=== PATIENT | female | born 1940 | race Caucasian/White ===

== ENCOUNTER 2018-01-01 10:39 | Emergency (ER) | payer MEDICARE, BC ==
[2018-01-01 11:14] VITALS: BP 152/64
--- NOTE | 2018-01-01 11:24 | UC ---
UC General HPI - HPI Summary HPI Summary: pt is c/o a "uti" had one before and this feels the same. she is c/o frequency, burning and hesitancy. denies abdominal pain, flank pain and fever. - History of Current Complaint Chief Complaint: UCGU Stated Complaint: URINARY COMPLAINT/BACK PAIN Time Seen by Provider: 01/01/18 11:17 Hx Obtained From: Patient Onset/Duration: Gradual Onset, Lasting Weeks - 2 Pain Intensity: 4 Aggravating: nothing Alleviating: nothing Associated Signs & Symptoms: Positive: Dysuria. Negative: Abdominal Pain, Fever - Allergy/Home Medications Allergies/Adverse Reactions: Allergies Allergy/AdvReac Type Severity Reaction Status Date / Time furosemide [From Lasix] Allergy Unknown Verified 01/01/18 11:06 Reaction Details Penicillins Allergy Rash Verified 01/01/18 11:06 Sulfa (Sulfonamide Allergy Hives Verified 01/01/18 11:06 Antibiotics) Home Medications: Home Medications Alendronate (NF) [Fosamax (NF)] 70 mg PO WE 01/01/18 [History Confirmed 01/01/18 ] Apixaban* [Eliquis*] 5 mg PO BID 01/01/18 [History Confirmed 01/01/18] Azelastine 0.15% NASAL(NF) [Astepro 0.15% NASAL (NF)] 2 spray NASAL BID [History Confirmed 01/01/18] Evolocumab [Repatha Sureclick] 140 mg SC Q14D 01/01/18 [History Confirmed ] Ezetimibe TAB* [Zetia TAB*] 10 mg PO DAILY 01/01/18 [History Confirmed 01/01/18] FLUoxetine CAP* [PROzac CAP*] 20 mg PO DAILY 01/01/18 [History Confirmed ] Lansoprazole CAP (NF) [Prevacid CAP (NF)] 30 mg PO BID 01/01/18 [History Confirmed 01/01/18] Latanoprost 0.005%* [Xalatan 0.005%*] 1 drop BOTH EYES QPM 01/01/18 [History Confirmed 01/01/18] Losartan/Hydrochlorothiazide [Losartan-Hctz 100-25 mg Tab] 1 each PO DAILY 01/01 [History Confirmed 01/01/18] Metformin ER (NF) 500 mg PO DAILY 01/01/18 [History Confirmed 01/01/18] Nitroglycerin TAB 0.4 MG* 0.4 mg SL Q5M PRN 01/01/18 [History Confirmed 01/01/18 ] Olopatadine 0.1% OPHTH (NF) [Patanol 0.1% OPHTH (NF)] 1 drop BOTH EYES BID PRN 01/01/18 [History Confirmed 01/01/18] Phenytoin CAP(*) [Dilantin CAP(*)] 300 mg PO BEDTIME 01/01/18 [History Confirmed 01/01/18] Ubidecarenone [Co Q-10] 200 mg PO DAILY 01/01/18 [History Confirmed 01/01/18] PMH/Surg Hx/FS Hx/Imm Hx Endocrine History: Dyslipidemia Cardiovascular History: Cardiac Disease Psychological History: Depression - Surgical History Surgical History: Yes Surgery Procedure, Year, and Place: Triple CABG, 2013, [facility]; Breast Reduction, [facility] [place]; Cholecystectomy, ~1987, [place] - Social History Occupation: Retired Lives: With Family Alcohol Use: None Substance Use Type: None Smoking Status (MU): Never Smoked Tobacco - Immunization History Vaccination Up to Date: Yes Review of Systems Constitutional: Negative Skin: Negative Eyes: Negative ENT: Negative Respiratory: Negative Cardiovascular: Negative Gastrointestinal: Negative Genitourinary: Dysuria, Frequency, Urgency Motor: Negative Neurovascular: Negative Musculoskeletal: Negative Neurological: Negative Psychological: Negative Is Patient Immunocompromised?: No All Other Systems Reviewed And Are Negative: Yes Physical Exam Triage Information Reviewed: Yes Appearance: Well-Appearing Vital Signs: Initial Vital Signs Temp 97.4 F 01/01/18 11:01 Pulse 68 01/01/18 11:01 Resp 16 01/01/18 11:01 BP 152/64 01/01/18 11:01 Pulse Ox 98 01/01/18 11:01 Vital Signs Reviewed: Yes Eyes: Positive: Conjunctiva Clear ENT: Positive: Normal ENT inspection Neck: Positive: Supple, Nontender, No Lymphadenopathy Respiratory: Positive: Lungs clear, Normal breath sounds Cardiovascular: Positive: RRR, No Murmur Abdomen Description: Positive: Nontender, No Organomegaly, Soft. Negative: CVA Tenderness (R), CVA Tenderness (L), Distended, Guarding Bowel Sounds: Positive: Present Musculoskeletal: Positive: ROM Intact Neurological: Positive: Alert Psychological: Positive: Age Appropriate Behavior Skin Exam: Normal Diagnostics - Laboratory Diagnostic Studies Completed/Ordered: u/a=+blood/leukocytes with culture pending. Course/Dx - Course Course Of Treatment: non toxic, hx and u/a c/w uti. pcn allergy rash thus will tx with keflex. - Differential Dx - Multi-Symptom Provider Diagnoses: UTI Discharge - Sign-Out/Discharge Documenting (check all that apply): Discharge/Admit/Transfer - Discharge Plan Condition: Stable Disposition: HOME Prescriptions: Cephalexin CAP* [Keflex CAP*] 500 mg PO TID #21 cap Patient Education Materials: Urinary Tract Infection in Women (DC) Referrals: Etelvina DIRECTOR [employer]PORATE COMM[employer]ICATIONS,Stefano Christensen [Primary Care Provider] - 5 Days - Billing Disposition and Condition Condition: STABLE Disposition: HOME
--- NOTE | 2018-01-03 13:14 | UC ---
- Progress Note Progress Note: Call re E. coli which is ESBL E. coli. Only oral med option is nitrofurantoing given hx of allergy to pcn. Please call her to advise that the antibiotic is being changed, STOP cephalexin , take nitrofurantoin. Should follow up with PMD 1 week after tx is finished for follow up eval. Discharge - Sign-Out/Discharge Documenting (check all that apply): Discharge/Admit/Transfer - Discharge Plan Condition: Stable Disposition: HOME Prescriptions: Nitrofurantoin Macrocrystal [Macrodantin 50 MG] 50 mg PO BID #14 capsule Patient Education Materials: Urinary Tract Infection in Women (DC) Referrals: Etelvina BAND BUILDER,Stefano Christensen [Primary Care Provider] - 5 Days - Billing Disposition and Condition Condition: STABLE Disposition: HOME
== END 2018-01-01 11:43 | disposition home or self-care (01) ==
LOC: UCCORT 10:39
DX: N39.0 Urinary tract infection, site not specified (principal); E78.5 Hyperlipidemia, unspecified; F32.9 Major depressive disorder, single episode, unspecified; I25.10 Atherosclerotic heart disease of native coronary artery without angina pectoris; Z95.1 Presence of aortocoronary bypass graft; Z88.0 Allergy status to penicillin; Z88.2 Allergy status to sulfonamides; Z79.01 Long term (current) use of anticoagulants; Z41.1 Encounter for cosmetic surgery; Z90.49 Acquired absence of other specified parts of digestive tract
CPT/HCPCS: 81003; 87077; 87086; 87186; 99212; G0463

== ENCOUNTER 2018-11-15 09:52 | Emergency (ER) | payer MEDICARE, BC ==
[2018-11-15 10:31] VITALS: BP 163/65
[2018-11-15] MEDS ORDERED: Phenazopyridine TAB* 100 MG PO ONE (10:53)
--- NOTE | 2018-11-15 11:02 | UC ---
Complaint Female HPI - HPI Summary HPI Summary: 78 yo female with dysuria/urgency and frequency x <36 hours no f/c no back or abd pain - History Of Current Complaint Chief Complaint: UCGU Stated Complaint: URINARY Time Seen by Provider: 11/15/18 10:48 Hx Obtained From: Patient Onset/Duration: Gradual Onset, Lasting Hours Timing: Intermittent, Lasting Seconds Severity Initially: Severe Severity Currently: None Pain Intensity: 0 Pain Scale Used: 0-10 Numeric Character: Burning Aggravating Factor(s): Urination Associated Signs And Symptoms: Negative: Fever, Back Pain, Vaginal Bleeding/ Discharge, Vaginal Discharge, Nausea, Vomiting(# Of Episodes =), Genital Swelling, Genital Blisters, Retained Foregin Body (Specify) Related Hx: Similar Episode/Dx as: - UTI - Allergies/Home Medications Allergies/Adverse Reactions: Allergies Allergy/AdvReac Type Severity Reaction Status Date / Time aspirin Allergy "tightness Verified 11/15/18 10:25 in chest" furosemide [From Lasix] Allergy Unknown Verified 11/15/18 10:25 Reaction Details Penicillins Allergy Rash Verified 11/15/18 10:25 Sulfa (Sulfonamide Allergy Hives Verified 11/15/18 10:25 Antibiotics) Home Medications: Home Medications Hydrochlorothiazide TAB* [Hydrodiuril TAB*] 25 mg PO DAILY 11/15/18 [History Confirmed 11/15/18] Losartan/Hydrochlorothiazide [Losartan Potassium/Hydroc 100-25 mg] 1 tab PO DAILY 11/15/18 [History Confirmed 11/15/18] PMH/Surg Hx/FS Hx/Imm Hx Endocrine History: Diabetes, Dyslipidemia Cardiovascular History: Hypertension, Atrial Fibrillation - Surgical History Surgical History: Yes Surgery Procedure, Year, and Place: Triple CABG, 2013, [facility]; Breast Reduction, [facility] [place]; Cholecystectomy, ~1987, [place] - Social History Alcohol Use: None Substance Use Type: None Smoking Status (MU): Never Smoked Tobacco - Immunization History Vaccination Up to Date: Yes Review of Systems All Other Systems Reviewed And Are Negative: Yes Constitutional: Positive: Negative Skin: Positive: Negative Eyes: Positive: Negative ENT: Positive: Negative Respiratory: Positive: Negative Cardiovascular: Positive: Negative Gastrointestinal: Positive: Negative Genitourinary: Positive: Dysuria, Frequency, Urgency Motor: Positive: Decreased ROM Neurovascular: Positive: Negative Musculoskeletal: Positive: Negative Neurological: Positive: Negative Psychological: Positive: Negative Physical Exam Triage Information Reviewed: Yes Appearance: Well-Appearing, No Pain Distress, Well-Nourished Vital Signs: Initial Vital Signs Temp 98.1 F 11/15/18 10:20 Pulse 69 11/15/18 10:20 Resp 18 11/15/18 10:20 BP 163/65 11/15/18 10:20 Pulse Ox 97 11/15/18 10:20 Vital Signs Reviewed: Yes Eyes: Positive: Conjunctiva Clear ENT: Positive: Hearing grossly normal. Negative: Nasal congestion, Nasal drainage, Tonsillar swelling, Tonsillar exudate, Trismus, Muffled voice, Hoarse voice, Sinus tenderness Neck: Positive: Supple, Nontender, No Lymphadenopathy Respiratory: Positive: Lungs clear, Normal breath sounds, No respiratory distress, No accessory muscle use Cardiovascular: Negative: RRR Abdomen Description: Positive: Nontender, No Organomegaly. Negative: CVA Tenderness (R), CVA Tenderness (L) Bowel Sounds: Positive: Present Neurological: Positive: Alert Psychological Exam: Normal Skin Exam: Normal Complaint Female Dx - Course Course Of Treatment: ++leuks, ++ rbcs - Differential Dx/Diagnosis Provider Diagnosis: Acute cystitis Discharge - Sign-Out/Discharge Documenting (check all that apply): Patient Departure All imaging exams completed and their final reports reviewed: No Studies - Discharge Plan Condition: Stable Disposition: HOME Prescriptions: Nitrofurantoin Monohyd/M-Cryst [Macrobid 100 mg Capsule] 100 mg PO BID #14 cap Phenazopyridine TAB* [Pyridium TAB*] 100 mg PO TID #6 tab Patient Education Materials: Urinary Tract Infection in Women (ED) Referrals: Etelvina BERRIOS,Stefano Christensen [Primary Care Provider] - Additional Instructions: recheck in 2-3 days if not better recheck sooner for fever/back pain or vomiting - Billing Disposition and Condition Condition: STABLE Disposition: Home
== END 2018-11-15 11:03 | disposition home or self-care (01) ==
LOC: UCCORT 09:52
DX: N30.00 Acute cystitis without hematuria (principal); B96.20 Unspecified Escherichia coli [E. coli] as the cause of diseases classified elsewhere; E11.9 Type 2 diabetes mellitus without complications; E78.5 Hyperlipidemia, unspecified; I10 Essential (primary) hypertension; I48.91 Unspecified atrial fibrillation; Z95.1 Presence of aortocoronary bypass graft; Z88.6 Allergy status to analgesic agent; Z88.0 Allergy status to penicillin; Z88.2 Allergy status to sulfonamides; Z88.8 Allergy status to other drugs, medicaments and biological substances
CPT/HCPCS: 81003; 87077; 87086; 87186; 99212; A9270-GY; G0463

== ENCOUNTER 2019-01-22 11:15 | Emergency (ER) | payer MEDICARE, BC ==
[2019-01-22 11:40] VITALS: BP 160/71
--- NOTE | 2019-01-22 11:53 | UC ---
General HPI - HPI Summary HPI Summary: This is a 78 yr old with a sore on RLE. Been there for the past week. Had her son try and pop it two separate times with a sterilized needle. States they were able to get some pus out each time and putting triple AAA ointment on it. Still area has persisted and painful to walk on. No falls. No fevers. No n/v. otherwise well. No known tick bites. Meds; not updated - History of Current Complaint Chief Complaint: UCSkin Stated Complaint: RIGHT LEG SKIN Time Seen by Provider: 01/22/19 11:41 Pain Intensity: 7 - Allergy/Home Medications Allergies/Adverse Reactions: Allergies Allergy/AdvReac Type Severity Reaction Status Date / Time aspirin Allergy "tightness Verified 11/15/18 10:25 in chest" furosemide [From Lasix] Allergy Unknown Verified 11/15/18 10:25 Reaction Details Penicillins Allergy Rash Verified 11/15/18 10:25 Sulfa (Sulfonamide Allergy Hives Verified 11/15/18 10:25 Antibiotics) PMH/Surg Hx/FS Hx/Imm Hx Previously Healthy: Yes Endocrine History: Diabetes Cardiovascular History: Hypertension - Surgical History Surgical History: Yes Surgery Procedure, Year, and Place: Triple CABG, 2013, [facility]; Breast Reduction, [facility] [place]; Cholecystectomy, ~1987, [place] - Social History Alcohol Use: None Substance Use Type: None Smoking Status (MU): Never Smoked Tobacco - Immunization History Vaccination Up to Date: Yes Review of Systems All Other Systems Reviewed And Are Negative: Yes Constitutional: Positive: Negative Physical Exam Triage Information Reviewed: Yes Appearance: Well-Appearing Vital Signs: Initial Vital Signs Temp 97.8 F 01/22/19 11:34 Pulse 72 01/22/19 11:34 Resp 18 01/22/19 11:34 BP 160/71 01/22/19 11:34 Pulse Ox 95 01/22/19 11:34 Vital Signs Reviewed: Yes Skin Exam: Other - right lower ext 2 cm circular raised erythematous lesion with scabbing centrally - mildly erythematous and indurated. No fluctuance. No drainage Course/Dx - Course Course Of Treatment: This is a 78 yr old with a wound on RLE Assessment Cellulitis (secondary infection from bug bite?) and possible early abscess Plan Start Clindamycin as prescribed Continue warm compresses to area Monitor area If redness, swelling or pain worsens, recommend follow up with PCP or return to urgent care - Diagnoses Provider Diagnosis: Cellulitis Discharge - Sign-Out/Discharge Documenting (check all that apply): Patient Departure All imaging exams completed and their final reports reviewed: No Studies - Discharge Plan Condition: Fair Disposition: HOME Prescriptions: Clindamycin Cap(NF) [Clindamycin Cap 300 mg Cap(NF)] 300 mg PO Q6H #30 cap Patient Education Materials: Cellulitis (ED) Referrals: No Primary Care Phys,NOPCP [Primary Care Provider] - Additional Instructions: Start Clindamycin as prescribed Continue warm compresses to area Monitor area If redness, swelling or pain worsens, recommend follow up with PCP or return to urgent care - Billing Disposition and Condition Condition: FAIR Disposition: Home
== END 2019-01-22 11:56 | disposition home or self-care (01) ==
LOC: UCCORT 11:15
DX: L03.115 Cellulitis of right lower limb (principal); E11.9 Type 2 diabetes mellitus without complications; I10 Essential (primary) hypertension; Z95.1 Presence of aortocoronary bypass graft
CPT/HCPCS: 99212; G0463